=== PATIENT | male | born 1985 | race Two or more races ===

== ENCOUNTER → 2024-10-23 | Outpatient (CLI) | payer MEDICAID, SELFPAY ==
--- NOTE | 2024-10-23 11:30 | XR_ITS ---
Examination: Ultrasound liver Elastography Date and time: October 23, 2024 1115 hours INDICATIONS: Diagnosis of hepatomegaly Date and time: October 23, 2024 1115 hours TECHNIQUE AND FINDINGS: Sonographic images obtained of the liver including assessment tissue stiffness average Liver 15.7 cm Normal hepatopedal portal venous flow Patent hepatic veins Tissues stiffness average 1.4 m/s, mild to moderate liver fibrosis IMPRESSION: Qzob-on-wzislhoo liver fibrosis
== END | disposition home or self-care (01) ==
LOC: CDIM 10:59
PROVIDERS: PCP Physician Assistant; Referring Provider Physician Assistant; Visit Provider Physician Assistant
DX: K74.00 Hepatic fibrosis, unspecified (principal)
CPT/HCPCS: 76981